=== PATIENT | male | born 1990 | race Caucasian/White ===

== ENCOUNTER 2021-01-23 12:09 | Emergency (ER) | payer MEDICAID ==
[2021-01-23 12:56] LABS: ANION GAP 13.2 mmol/L (5-15); CHLORIDE,CL 101 mmol/L (98-107); SODIUM,NA 138 mmol/L (136-145)
--- NOTE | 2021-01-23 12:56 | EDM.PDOC ---
ED HPI GENERAL MEDICAL PROBLEM - General Chief Complaint: General Stated Complaint: INFECTION IN ARM Time Seen by Provider: 01/23/21 12:38 Source of Information: Reports: Patient, Significant Other History Limitations: Reports: No Limitations - History of Present Illness INITIAL COMMENTS - FREE TEXT/NARRATIVE: Patient presents with left forearm swelling and redness for the last couple days. It is around the site where he injected meth 3 days ago. He has a history of multiple MRSA infections and usually was treated with Vanco, also needed Benadryl due to extreme itch from it. 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 He also has a headache and occipital pain today. Left Lower Arm Pain Score (Numeric/FACES): 8 - Related Data Allergies Allergy/AdvReac Type Severity Reaction Status Date / Time paroxetine [From Paxil] Allergy Cannot Verified 01/23/21 14:21 Remember varenicline [From Chantix] Allergy Cannot Verified 01/23/21 14:22 Remember Home Meds: Home Meds . [No Known Home Meds] 01/23/21 [History] ED ROS GENERAL - Review of Systems Review Of Systems: See Below Constitutional: Denies: Fever, Chills HEENT: Denies: Ear Pain, Throat Pain, Vision Change Respiratory: Denies: Shortness of Breath, Cough Cardiovascular: Denies: Chest Pain, Lightheadedness, Syncope GI/Abdominal: Denies: Abdominal Pain, Constipation, Diarrhea, Nausea, Vomiting : Denies: Dysuria, Flank Pain Musculoskeletal: Reports: Neck Pain (occipital), Arm Pain (left). Denies: Shoulder Pain, Back Pain, Hand Pain, Leg Pain Skin: Denies: Cyanosis, Jaundice, Mottled, Pallor, Diaphoresis Neurological: Reports: Headache. Denies: Confusion, Dizziness, Seizure, Syncope, Trouble Speaking, Difficulty Walking Psychiatric: Denies: Agitation, Anxiety, Confusion ED EXAM, GENERAL - Physical Exam Exam: See Below Exam Limited By: No Limitations General Appearance: Alert, WD/WN, No Apparent Distress Eye Exam: Bilateral Eye: EOMI, Normal Inspection, PERRL Ears: Normal External Exam, Normal Canal, Hearing Grossly Normal, Normal TMs Nose: Normal Inspection, No Blood Throat/Mouth: Normal Inspection, Normal Lips, Normal Teeth (look quite good; he says he recently spent $4000 on them.), Normal Oropharynx, Normal Voice, No Airway Compromise Head: Atraumatic, Normocephalic Neck: Supple, Full Range of Motion (pain-free in all directions), Tender Lateral (mild), Tender Midline (mild to mod). No: Limited Range of Motion, Lymphadenopathy (L), Lymphadenopathy (R) Respiratory/Chest: No Respiratory Distress, Lungs Clear, Normal Breath Sounds, No Accessory Muscle Use Cardiovascular: Normal Peripheral Pulses, Regular Rate, Rhythm, No Murmur Peripheral Pulses: 2+: Radial (L), Radial (R), Posterior Tibial (L), Posterior Tibial (R) GI/Abdominal: Normal Bowel Sounds, Soft, No Organomegaly, No Distention, Tender (mild tenderness throughout that he wasn't aware of previously). No: Distended, Guarding, Rigid Back Exam: Normal Inspection, Full Range of Motion. No: CVA Tenderness (L), CVA Tenderness (R) Extremities: Normal Range of Motion, No Pedal Edema, Normal Capillary Refill, Redness (and swelling of proximal 2/3 of left forearm to elbow, consistent with cellulitis.) Neurological: Alert, Oriented, Normal Cognition, No Motor/Sensory Deficits Psychiatric: Normal Affect, Normal Mood Skin Exam: Warm, Dry, Intact, Normal Color, No Rash Course - Vital Signs Last Recorded V/S: Last Vital Signs Temp 97.8 F 01/23/21 12:25 Pulse 102 H 01/23/21 12:25 Resp 20 01/23/21 12:25 BP 140/89 01/23/21 12:25 Pulse Ox 97 01/23/21 12:25 - Orders/Labs/Meds Orders: Active Orders 24 hr Category Date Time Status CMP [COMPREHENSIVE METABOLIC PN,CMP] [CHEM] Stat Lab 01/23/21 12:19 Received CULTURE BLOOD [BC] Stat Lab 01/23/21 12:49 Ordered CULTURE BLOOD [BC] Stat Lab 01/23/21 12:49 Ordered Pharmacy to Dose - Vancomycin Med 01/23/21 12:48 Once 1 dose .XX ONETIME ONE Vancomycin 2 gm Med 01/23/21 13:30 Active Sodium Chloride 0.9% [Normal Saline] 500 ml IV ONETIME Blood Culture x2 Reflex Set [OM.PC] Stat Oth 01/23/21 12:49 Ordered Medication Orders Vancomycin HCl 2 gm/ Sodium (Chloride) 500 mls @ 200 mls/hr IV ONETIME ONE Stop: 01/23/21 15:59 Last Admin: 01/23/21 13:34 Dose: 200 mls/hr Documented by: JUAN Vancomycin HCl (Pharmacy To Dose - Vancomycin) 1 dose .XX ONETIME ONE Stop: 01/23/21 12:49 Labs: Laboratory Tests 01/23/21 01/23/21 01/23/21 Range/Units 12:19 12:19 13:10 WBC 11.13 H (5.00-10.00) 10^3/uL RBC 4.76 (4.50-6.00) 10^6/uL Hgb 14.2 (13.0-17.0) g/dL Hct 42.3 (40.0-52.0) % MCV 88.9 (82.0-92.0) fL MCH 29.8 (27.0-31.0) pg MCHC 33.6 (32.0-36.0) g/dL RDW 13.1 (11.5-14.5) % Plt Count 275 (150-400) 10^3/uL MPV 8.6 (7.4-10.4) fL Immature Gran % (Auto) 0.2 (0.0-5.0) % Neut % (Auto) 70.9 H (50.0-70.0) % Lymph % (Auto) 15.8 L (20.0-40.0) % Petroleum % (Auto) 12.0 H (2.0-8.0) % Eos % (Auto) 0.7 L (1.0-3.0) % Baso % (Auto) 0.4 (0.0-1.0) % Neut # (Auto) 7.89 H (2.50-7.00) 10^3/uL Lymph # (Auto) 1.76 (1.00-4.00) 10^3/uL Petroleum # (Auto) 1.34 H (0.10-0.80) 10^3/uL Eos # (Auto) 0.08 L (0.10-0.30) 10^3/uL Baso # (Auto) 0.04 (0.00-0.10) 10^3/uL Immature Gran # (Auto) 0.02 (0.00-0.50) 10^3/uL Sodium 138 (136-145) mmol/L Potassium 3.9 (3.5-5.1) mmol/L Chloride 101 (98-107) mmol/L Carbon Dioxide 27.7 (21.0-32.0) mmol/L Anion Gap 13.2 (5-15) mmol/L BUN 10 (7-18) mg/dL Creatinine 0.91 (0.51-1.17) mg/dL Est Cr Clr Drug Dosing 4.53 mL/min Estimated GFR (MDRD) > 60 mL/min Glucose 93 (70-140) mg/dL Lactic Acid 1.3 (0.4-2.0) mmol/L Calcium 8.5 L (8.7-10.3) mg/dL Total Bilirubin 0.5 (0.2-1.0) mg/dL AST 20 (15-37) U/L ALT 35 (14-63) U/L Alkaline Phosphatase 96 (46-116) U/L Total Protein 7.4 (6.4-8.2) g/dL Meds: Medications Generic Name Dose Route Start Last Admin Trade Name Freq PRN Reason Stop Dose Admin Vancomycin HCl 2 gm/ Sodium 500 mls @ 200 mls/hr 01/23/21 13:30 01/23/21 13:34 Chloride IV 01/23/21 15:59 200 mls/hr ONETIME ONE Administration Vancomycin HCl 1 dose 01/23/21 12:48 Pharmacy To Dose - Vancomycin .XX 01/23/21 12:49 ONETIME ONE Discontinued Medications Generic Name Dose Route Start Last Admin Trade Name Freq PRN Reason Stop Dose Admin Diphenhydramine HCl 25 mg 01/23/21 12:51 01/23/21 13:12 Diphenhydramine 50 Mg/Ml Sdv IVPUSH 01/23/21 12:52 25 mg ONETIME ONE Administration Ketorolac Tromethamine 30 mg 01/23/21 14:40 Ketorolac 30 Mg/Ml Sdv IVPUSH 01/23/21 14:41 ONETIME ONE Trimethoprim/Sulfamethoxazole 1 tab 01/23/21 14:36 Sulfamethoxazole/Trimethoprim 800-160 Mg Tab PO 01/23/21 14:37 ONETIME ONE - Re-Assessments/Exams Free Text/Narrative Re-Assessment/Exam: 01/23/21 14:23 WBC 11.1, ANC 7.9, lactate 1.3. We are dosing Vanco 2 gm now. I discussed case with Dr. Rees concerning ideal treatment plan. She reviewed his [facility] chart and found he has had left forearm cellulitis and abscess in last 3 months. He has also been on hold for psych treatment and displayed aggression toward staff on multiple occasions. He left AMA after surgical drainage and debridement of left wrist infection. Culture showed strep pyogenes and has had MRSA in past also. We decided that the best plan would be to discuss possible treatment for drug use if he is open to it, and for the cellulitis (that currently shows no sign of abscess) will treat outpatient with Bactrim and follow up on Tuesday to determine continuing outpatient vs inpatient treatment needs. 01/23/21 14:37 Discussed plan with patient who agrees. We will schedule Tuesday appt at [facility] in [place] for recheck of left arm cellulitis. Patient says he is already set up for drug treatment at [facility] as soon as they have an opening. 01/23/21 14:53 RX for Bactrim DS #20, one po q12h x 10 days. 01/23/21 15:49 I traced roughly the outline of cellulitis and induration on left forearm for comparison on Tuesday. Patient stable and resting comfortably while Vanco runs. Departure - Departure Time of Disposition: 15:49 Disposition: Home, Self-Care 01 Condition: Good Clinical Impression: Cellulitis of left forearm, IV drug user - Discharge Information Referrals: Tasha Chris MD [Primary Care Provider] - Forms: ED Department Discharge Additional Instructions: Take the antibiotic twice daily as directed. Drink 8 cups of water daily. Follow up on Tuesday at [facility] for recheck of your arm. I encourage the drug treatment at [facility] that you have planned. Return to ER as needed. Sepsis Event Note (ED) - Evaluation Sepsis Screening Result: No Definite Risk - Focused Exam Vital Signs: Vital Signs Temp Pulse Resp BP Pulse Ox 01/23/21 12:25 97.8 F 102 H 20 140/89 97 - My Orders Last 24 Hours: My Active Orders 01/23/21 12:19 CMP [COMPREHENSIVE METABOLIC PN,CMP] [CHEM] Stat 01/23/21 12:48 Pharmacy to Dose - Vancomycin 1 dose .XX ONETIME ONE 01/23/21 12:49 CULTURE BLOOD [BC] Stat CULTURE BLOOD [BC] Stat Blood Culture x2 Reflex Set [OM.PC] Stat 01/23/21 13:30 Vancomycin 2 gm Sodium Chloride 0.9% [Normal Saline] 500 ml IV ONETIME - Assessment/Plan Last 24 Hours: My Active Orders 01/23/21 12:19 CMP [COMPREHENSIVE METABOLIC PN,CMP] [CHEM] Stat 01/23/21 12:48 Pharmacy to Dose - Vancomycin 1 dose .XX ONETIME ONE 01/23/21 12:49 CULTURE BLOOD [BC] Stat CULTURE BLOOD [BC] Stat Blood Culture x2 Reflex Set [OM.PC] Stat 01/23/21 13:30 Vancomycin 2 gm Sodium Chloride 0.9% [Normal Saline] 500 ml IV ONETIME
[2021-01-23] MEDS: diphenhydrAMINE 50 MG/ML SDV IVPUSH ONE (13:12)
[2021-01-23] MEDS: Vancomycin 2 GM in Sodium Chloride 0.9% 500 ML IV ONE (13:34)
[2021-01-23] MEDS: Ketorolac 30 MG/ML SDV IVPUSH ONE (15:05)
[2021-01-23] MEDS: Sulfamethoxazole/Trimethoprim 800-160 MG Tab PO ONE (15:06)
== END 2021-01-23 16:15 | disposition home or self-care (01) ==
LOC: KA.ED 12:09
DX: L03.114 Cellulitis of left upper limb (principal); F19.10 Other psychoactive substance abuse, uncomplicated; Z88.5 Allergy status to narcotic agent; Z88.8 Allergy status to other drugs, medicaments and biological substances
CPT/HCPCS: 36415; 80053; 83605; 85025; 87040; 96365; 96366; 96375; 99283; A9270; J1200; J1885; J3370; J7040